=== PATIENT | female | born 1950 | race Caucasian/White ===

== ENCOUNTER 2019-02-04 01:21 | Outpatient (CLI) | payer MEDICARE | END 2019-02-04 23:59 | disposition home or self-care (01) | LOC: RT 01:21 | PROVIDERS: ATTEND Internal Medicine Pulmonary Disease | DX: J84.10 Pulmonary fibrosis, unspecified (principal); R06.00 Dyspnea, unspecified; R06.02 Shortness of breath | CPT/HCPCS: 94618 ==

== ENCOUNTER 2019-12-02 15:42 | Outpatient (CLI) | payer MEDICARE ==
[~2019-12-02] VITALS: Ht 149.9 cm; Wt 68.0 kg
[2019-12-02 16:06] LABS: TOTAL HEMOGLOBIN 13.8 G/dl (12.0-16.0)
[2019-12-02] MEDS ORDERED: albuterol 2.5 MG/3 ML nebule NEB ONE (16:25)
== END 2019-12-02 23:59 | disposition home or self-care (01) ==
LOC: RT 15:42
PROVIDERS: ATTEND Internal Medicine Pulmonary Disease
DX: J84.112 Idiopathic pulmonary fibrosis (principal); J98.8 Other specified respiratory disorders
CPT/HCPCS: 85018; 94060; 94727; 94729; 94760

== ENCOUNTER 2020-08-11 10:41 | Outpatient (CLI) | payer MEDICARE | END 2020-08-11 23:59 | disposition home or self-care (01) | LOC: RT 10:41 | PROVIDERS: ATTEND Internal Medicine | DX: R94.2 Abnormal results of pulmonary function studies (principal) | CPT/HCPCS: 94010; 94727; 94729 ==

== ENCOUNTER 2020-09-13 08:08 | Outpatient (CLI) | payer MEDICARE | END 2020-09-13 23:59 | disposition home or self-care (01) | LOC: PUL REHAB 08:08 → RT 23:00 | DX: R06.02 Shortness of breath (principal) | CPT/HCPCS: 94618 ==

== ENCOUNTER 2021-02-15 10:12 | Outpatient (CLI) | payer MEDICARE | END 2021-02-15 23:59 | disposition home or self-care (01) | LOC: RT 10:12 | DX: R94.2 Abnormal results of pulmonary function studies (principal) | CPT/HCPCS: 94010; 94727; 94729 ==

== ENCOUNTER 2021-06-09 10:10 | Outpatient (CLI) | payer MEDICARE | END 2021-06-09 23:59 | disposition home or self-care (01) | LOC: RT 10:10 | PROVIDERS: ATTEND Specialist | DX: J84.10 Pulmonary fibrosis, unspecified (principal); Z86.11 Personal history of tuberculosis; Z87.891 Personal history of nicotine dependence; Z79.899 Other long term (current) drug therapy | CPT/HCPCS: 94010; 94727; 94729 ==